=== PATIENT | male | born 1965 | race Caucasian/White ===

== ENCOUNTER → 2018-03-08 | Outpatient (REF) | payer BC, OTHER ==
[2018-03-08 19:42] LABS: CREATININE FOR GFR 1.29 MG/DL (0.70-1.30); GLOMERULAR FILTRATION RATE > 60.0 (>56)
[2018-03-08 19:42] LABS: BLOOD UREA NITROGEN 14 MG/DL (7-18)
== END ==
LOC: M LAB REF 18:24
DX: R22.30 Localized swelling, mass and lump, unspecified upper limb (principal)
CPT/HCPCS: 82565

== ENCOUNTER 2021-10-05 18:55 | Emergency (ER) | payer BC, OTHER ==
[~2021-10-05] VITALS: Ht 180.3 cm; Wt 110.8 kg
[2021-10-05] MEDS ORDERED: VALS1TAB68 (19:06)
[2021-10-05] MEDS ORDERED: METF10004 (19:06)
[2021-10-05] MEDS ORDERED: MIDAZOLAM INJ 2MG/2ML VIAL (J2250 PER 1MG) IV STA (19:06)
[2021-10-05] MEDS ORDERED: SILD100T (19:06)
[2021-10-05] MEDS ORDERED: JARD1TAB (19:06)
[2021-10-05] MEDS ORDERED: KCL 10MEQ/100ML SWI (KRUN) 10 MEQ in IV 1 EA IV ONE (19:15)
[2021-10-05 19:28] LABS: BASO # 0.1 10^3/uL (0.0-0.2); BASO % 0.8 % (0.0-1.0); EOS # 0.1 10^3/uL (0.0-0.5); EOS % 1.3 % (0.0-3.0); HEMATOCRIT 48.2 % (42.0-52.0); HEMOGLOBIN 15.8 g/dl (13.5-17.5); LYMPH # 5.5 10^3/uL (1.5-5.0); LYMPH % 58.1 % (24.0-44.0); MEAN CORPUSCULAR HEMOGLOBIN 30.7 pg (27.0-33.0); MEAN CORPUSCULAR HGB CONC 32.8 g/dl (32.0-36.5); MEAN CORPUSCULAR VOLUME 93.8 fl (80.0-96.0); MONO # 0.6 10^3/uL (0.0-0.8); MONO % 6.3 % (2.0-8.0); NEUTROPHILS # 3.1 10^3/uL (1.5-8.5); NEUTROPHILS % 32.5 % (36.0-66.0); PLATELET COUNT, AUTOMATED 216 10^3/uL (150-450); RED BLOOD COUNT 5.14 10^6/uL (4.30-6.10); WHITE BLOOD COUNT 9.5 10^3/uL (4.0-10.0)
[2021-10-05] MEDS ORDERED: NS 1,000 ML IV ONE (19:30)
--- NOTE | 2021-10-05 19:51 | REP ---
INDICATION: CHEST PAIN. COMPARISON: 05/07/2014. TECHNIQUE: Single portable AP view of the chest was performed. FINDINGS: There is no acute infiltrate or pulmonary edema. Lungs are clear. The heart is mildly enlarged. The mediastinal silhouette is magnified. The visualized osseous structures are intact. IMPRESSION: No acute pulmonary disease.Mild cardiomegaly. <Electronically signed by Andre Cash > 10/05/211946
[2021-10-05] MEDS ORDERED: ASPIRIN 81 MG CHEW TABLET PO ONE (19:55)
[2021-10-05] MEDS ORDERED: HEPARIN DRIP 25,000 UNITS in IV 1 EA IV SCH (19:55)
[2021-10-05] MEDS ORDERED: TICAGRELOR 90 MG TABLET (BRILINTA) PO ONE (19:55)
[2021-10-05] MEDS ORDERED: HEPARIN SOD (PORCINE) 5000UNITS/ML 1ML VIAL/SYRINGE IV ONE (19:55)
[2021-10-05 20:05] LABS: ALBUMIN 3.8 GM/DL (3.2-5.2); BILIRUBIN,DIRECT 0.2 MG/DL (0.0-0.2); BILIRUBIN,TOTAL 0.5 MG/DL (0.2-1.0); CREATININE FOR GFR 1.72 MG/DL (0.70-1.30); FREE T4 0.97 NG/DL (0.76-1.46); GLOMERULAR FILTRATION RATE 43.9 (>56); MAGNESIUM LEVEL 2.2 MG/DL (1.8-2.4); POTASSIUM SERUM 3.2 MEQ/L (3.5-5.1); THYROID STIMULATING HORMONE 2.01 uIU/ML (0.358-3.740); TOTAL PROTEIN 7.2 GM/DL (6.4-8.2)
[2021-10-05 20:19] LABS: CK-MB VALUE MASS 2.1 NG/ML (<3.6); MB/CK RELATIVE INDEX 1.1 (< OR =4)
[2021-10-05 20:22] LABS: RSV AMPLIFICATION NEGATIVE (NEGATIVE)
[2021-10-05 20:29] VITALS: BP 132/80
[2021-10-05 21:03] LABS: CK-MB VALUE MASS 11.2 NG/ML (<3.6); MB/CK RELATIVE INDEX 4.38 (< OR =4)
--- NOTE | 2021-10-06 06:42 | ECGEPIP ---
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
--- NOTE | 2021-10-06 12:45 | ECGEPIP ---
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
--- NOTE | 2021-10-07 08:25 | ECGEPIP ---
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
== END 2021-10-05 20:29 | disposition short-term general hospital (02) ==
LOC: EDBD 18:55 → M ED 18:55
DX: I21.3 ST elevation (STEMI) myocardial infarction of unspecified site (principal); R94.31 Abnormal electrocardiogram [ECG] [EKG]; I10 Essential (primary) hypertension; E11.9 Type 2 diabetes mellitus without complications; E78.5 Hyperlipidemia, unspecified; Z79.84 Long term (current) use of oral hypoglycemic drugs
CPT/HCPCS: 71045; 80047; 80048; 80076; 82550; 82553; 83690; 83735; 83880; 84439; 84443; 84484; 85025; 87631; 93005; 93041; 94760; 96365; 96367; 96375; 99285; J1644; J2250; J3480

== ENCOUNTER → 2022-08-21 | Outpatient (REF) | payer BC, OTHER ==
[~2022-08-21] MED LIST: JARD1TAB; METF10004; SILD100T; VALS1TAB68
[2022-08-21 18:08] LABS: BASO % 0.7 % (0.0-1.0); EOS # 0.1 10^3/uL (0.0-0.5); EOS % 2.2 % (0.0-3.0); HEMATOCRIT 47.8 % (42.0-52.0); HEMOGLOBIN 15.6 g/dl (13.5-17.5); LYMPH % 33.8 % (24.0-44.0); MEAN CORPUSCULAR HEMOGLOBIN 31.1 pg (27.0-33.0); MEAN CORPUSCULAR HGB CONC 32.6 g/dl (32.0-36.5); MEAN CORPUSCULAR VOLUME 95.4 fl (80.0-96.0); MONO # 0.5 10^3/uL (0.0-0.8); MONO % 7.9 % (2.0-8.0); NEUTROPHILS # 3.1 10^3/uL (1.5-8.5); NEUTROPHILS % 53.7 % (36.0-66.0); PLATELET COUNT, AUTOMATED 169 10^3/uL (150-450); RED BLOOD COUNT 5.01 10^6/uL (4.30-6.10); WHITE BLOOD COUNT 5.9 10^3/uL (4.0-10.0)
[2022-08-21 19:56] LABS: ALBUMIN 4.1 GM/DL (3.2-5.2); ALT/SGPT 46 U/L (12-78); BILIRUBIN,TOTAL 0.8 MG/DL (0.2-1.0); BLOOD UREA NITROGEN 19 MG/DL (7-18); CALCIUM LEVEL 9.8 MG/DL (8.5-10.1); CARBON DIOXIDE LEVEL 26 MEQ/L (21-32); CHLORIDE LEVEL 105 MEQ/L (98-107); CHOLESTEROL LEVEL 154 MG/DL (<200); CHOLESTEROL RISK RATIO 2.655 (<5); CREATININE FOR GFR 1.13 MG/DL (0.70-1.30); GLOMERULAR FILTRATION RATE > 60.0 (>56); GLUCOSE, FASTING 152 MG/DL (70-100); HDL CHOLESTEROL 58 MG/DL (>40); LDL CHOLESTEROL 51 MG/DL (<100); NON-HDL-C 96 MG/DL; POTASSIUM SERUM 4.5 MEQ/L (3.5-5.1); SODIUM LEVEL 140 MEQ/L (136-145); TOTAL PROTEIN 7.3 GM/DL (6.4-8.2); TRIGLYCERIDES LEVEL 227 MG/DL (<150)
[2022-08-21 20:40] LABS: TOTAL 25(OH) VITAMIN D 34.8 NG/ML (30.0-100.0)
[2022-08-21 20:46] LABS: CREATININE, URINE 54.5 MG/DL; MALB URINE SIEMENS 69.5 MG/L; MAU/CREAT RATIO 127.5 MCG/MG (0.0-30.0)
== END ==
LOC: M LAB REF 16:39
PROVIDERS: ATTEND Nurse Practitioner Family
DX: R53.83 Other fatigue (principal); I10 Essential (primary) hypertension; E11.9 Type 2 diabetes mellitus without complications

== ENCOUNTER 2022-09-18 20:13 | Emergency (ER) | payer BC, OTHER ==
[~2022-09-18] VITALS: Ht 180.3 cm; Wt 103.9 kg
[2022-09-18] MEDS ORDERED: ATOR40TA75 PO (20:38)
[2022-09-18] MEDS ORDERED: OMEP-173 PO (20:38)
[2022-09-18] MEDS ORDERED: BRIL90TA PO (20:38)
[2022-09-18] MEDS ORDERED: METO1TAB32 PO (20:38)
[2022-09-18] MEDS ORDERED: LABETALOL 100MG/20ML VIAL IV STA (22:11)
[2022-09-18] MEDS ORDERED: FUROSEMIDE 40MG/4ML VIAL (J1940) IV ONE (22:15)
[2022-09-18] MEDS ORDERED: ASPIRIN 81MG CHEW TABLET PO ONE (22:15)
[2022-09-18 22:34] VITALS: BP 169/114
[2022-09-18 22:39] LABS: BASO % 0.8 % (0.0-1.0); EOS # 0.1 10^3/uL (0.0-0.5); EOS % 2.3 % (0.0-3.0); HEMATOCRIT 46.2 % (42.0-52.0); LYMPH # 1.7 10^3/uL (1.5-5.0); LYMPH % 33.5 % (24.0-44.0); MEAN CORPUSCULAR HEMOGLOBIN 31.6 pg (27.0-33.0); MEAN CORPUSCULAR HGB CONC 34.6 g/dl (32.0-36.5); MEAN CORPUSCULAR VOLUME 91.1 fl (80.0-96.0); MONO # 0.4 10^3/uL (0.0-0.8); MONO % 7.9 % (2.0-8.0); NEUTROPHILS # 2.8 10^3/uL (1.5-8.5); NEUTROPHILS % 54.5 % (36.0-66.0); PLATELET COUNT, AUTOMATED 169 10^3/uL (150-450); RED BLOOD COUNT 5.07 10^6/uL (4.30-6.10); WHITE BLOOD COUNT 5.2 10^3/uL (4.0-10.0)
[2022-09-18 23:34] LABS: CK-MB VALUE MASS < 1.0 NG/ML (<3.6)
[2022-09-18 23:36] LABS: BILIRUBIN,DIRECT 0.3 MG/DL (<0.4)
[2022-09-18 23:44] LABS: ALBUMIN 4.2 G/DL (3.2-5.2); ALKALINE PHOSPHATASE 64 U/L (46-116); ALT/SGPT 63 U/L (7.0-40); AST/SGOT 32 U/L (<34); BILIRUBIN,TOTAL 0.9 MG/DL (0.3-1.2); BLOOD UREA NITROGEN 15 MG/DL (9-23); CALCIUM LEVEL 9.7 MG/DL (8.5-10.1); CARBON DIOXIDE LEVEL 26 MMOL/L (20-31); CHLORIDE LEVEL 102 MMOL/L (98-107); CPK CREATINE PHOSPHOKINASE 121 U/L (46-171); CREATININE FOR GFR 0.96 MG/DL (0.70-1.30); GLOMERULAR FILTRATION RATE > 60.0 (>56); GLUCOSE, FASTING 113 MG/DL (60-100); MB/CK RELATIVE INDEX 0.82 (< OR =4); SODIUM LEVEL 139 MMOL/L (136-145); TOTAL PROTEIN 7.2 G/DL (5.7-8.2)
[2022-09-18 23:45] VITALS: BP 132/88
[2022-09-18] MEDS ORDERED: LASI20TA3 PO (23:50)
== END 2022-09-19 00:05 | disposition home or self-care (01) ==
LOC: M ED 20:13
DX: I10 Essential (primary) hypertension (principal); I51.9 Heart disease, unspecified; Z79.899 Other long term (current) drug therapy; Z79.02 Long term (current) use of antithrombotics/antiplatelets; Z79.84 Long term (current) use of oral hypoglycemic drugs
CPT/HCPCS: 36415; 80048; 80076; 82550; 82553; 84484; 85025; 93005; 93041; 94760; 96374; 96375; 99285; J1940

== ENCOUNTER → 2022-10-27 | Outpatient (REF) | payer OTHER, BC ==
[~2022-10-27] MED LIST changes: +ATOR40TA75 PO; +BRIL90TA PO; +LASI20TA3 PO; +METO1TAB32 PO; +OMEP-173 PO
[2022-10-27 14:36] LABS: BLOOD UREA NITROGEN 25 MG/DL (9-23); CALCIUM LEVEL 10.3 MG/DL (8.5-10.1); CARBON DIOXIDE LEVEL 27 MMOL/L (20-31); CHLORIDE LEVEL 100 MMOL/L (98-107); CREATININE FOR GFR 1.17 MG/DL (0.70-1.30); GLOMERULAR FILTRATION RATE > 60.0 (>56); GLUCOSE, FASTING 177 MG/DL (60-100); POTASSIUM SERUM 4.4 MMOL/L (3.5-5.1); SODIUM LEVEL 137 MMOL/L (136-145)
== END ==
LOC: M LABDRWAD 13:13
DX: E11.9 Type 2 diabetes mellitus without complications (principal); I10 Essential (primary) hypertension

== ENCOUNTER → 2023-01-30 | Outpatient (CLI) | payer BC, OTHER ==
[2023-01-30 17:50] LABS: BLOOD UREA NITROGEN 19 MG/DL (9-23); CALCIUM LEVEL 10.5 MG/DL (8.5-10.1); CARBON DIOXIDE LEVEL 30 MMOL/L (20-31); CHLORIDE LEVEL 101 MMOL/L (98-107); CREATININE FOR GFR 1.13 MG/DL (0.70-1.30); GLOMERULAR FILTRATION RATE > 60.0 (>56); GLUCOSE, FASTING 144 MG/DL (60-100); SODIUM LEVEL 140 MMOL/L (136-145)
== END ==
LOC: M WUC 11:16
PROVIDERS: ATTEND Pediatrics
DX: I10 Essential (primary) hypertension (principal)

== ENCOUNTER → 2023-02-01 | Outpatient (CLI) | payer BC, OTHER | LOC: M PLARAD 08:16 | PROVIDERS: ATTEND Pediatrics | DX: H53.40 Unspecified visual field defects (principal); J34.89 Other specified disorders of nose and nasal sinuses; I67.89 Other cerebrovascular disease ==

== ENCOUNTER → 2023-06-26 | Outpatient (REF) | payer BC, OTHER ==
[2023-06-26 19:23] LABS: BASO # 0.1 10^3/uL (0.0-0.2); BASO % 0.8 % (0.0-1.0); EOS # 0.1 10^3/uL (0.0-0.5); EOS % 1.6 % (0.0-3.0); HEMATOCRIT 48.6 % (42.0-52.0); HEMOGLOBIN 16.1 g/dl (13.5-17.5); LYMPH # 1.8 10^3/uL (1.5-5.0); LYMPH % 29.5 % (24.0-44.0); MEAN CORPUSCULAR HEMOGLOBIN 31.5 pg (27.0-33.0); MEAN CORPUSCULAR HGB CONC 33.1 g/dl (32.0-36.5); MEAN CORPUSCULAR VOLUME 95.1 fl (80.0-96.0); MONO # 0.4 10^3/uL (0.0-0.8); MONO % 6.3 % (2.0-8.0); NEUTROPHILS # 3.8 10^3/uL (1.5-8.5); NEUTROPHILS % 60.4 % (36.0-66.0); PLATELET COUNT, AUTOMATED 181 10^3/uL (150-450); RED BLOOD COUNT 5.11 10^6/uL (4.30-6.10); WHITE BLOOD COUNT 6.2 10^3/uL (4.0-10.0)
[2023-06-26 19:48] LABS: ALBUMIN 4.3 G/DL (3.2-5.2); ALKALINE PHOSPHATASE 64 U/L (46-116); ALT/SGPT 40 U/L (7.0-40); AST/SGOT 25 U/L (<34); BILIRUBIN,TOTAL 0.9 MG/DL (0.3-1.2); BLOOD UREA NITROGEN 21 MG/DL (9-23); CALCIUM LEVEL 9.5 MG/DL (8.5-10.1); CARBON DIOXIDE LEVEL 29 MMOL/L (20-31); CHLORIDE LEVEL 103 MMOL/L (98-107); CHOLESTEROL LEVEL 138 MG/DL (<200); CHOLESTEROL RISK RATIO 2.32 (<5); CREATININE FOR GFR 1.07 MG/DL (0.70-1.30); GLOMERULAR FILTRATION RATE > 60.0 (>56); GLUCOSE, FASTING 138 MG/DL (60-100); HDL CHOLESTEROL 59.3 MG/DL (>40); LDL CHOLESTEROL 61.9 MG/DL (<100); NON-HDL-C 78.7 MG/DL; POTASSIUM SERUM 4.7 MMOL/L (3.5-5.1); SODIUM LEVEL 141 MMOL/L (136-145); THYROID STIMULATING HORMONE 0.726 uIU/ML (0.55-4.78); TOTAL PROTEIN 7.3 G/DL (5.7-8.2); TRIGLYCERIDES LEVEL 84 MG/DL (<150)
== END ==
LOC: M LAB REF 16:37
PROVIDERS: ATTEND Pediatrics
DX: E11.69 Type 2 diabetes mellitus with other specified complication (principal); I10 Essential (primary) hypertension; I25.10 Atherosclerotic heart disease of native coronary artery without angina pectoris; L80 Vitiligo; Z12.5 Encounter for screening for malignant neoplasm of prostate
CPT/HCPCS: 80053; 80061; 83036; 84443; 85025; G0103

== ENCOUNTER → 2023-09-14 | Outpatient (REF) | payer BC, OTHER ==
[2023-09-14 14:09] LABS: CREATININE, URINE 53.5 MG/DL
== END ==
LOC: M LAB REF 12:03
PROVIDERS: ATTEND Pediatrics
DX: E11.69 Type 2 diabetes mellitus with other specified complication (principal)

== ENCOUNTER → 2024-01-15 | Outpatient (CLI) | payer OTHER, BC ==
[2024-01-15 14:17] LABS: BLOOD UREA NITROGEN 19 MG/DL (9-23); GLOMERULAR FILTRATION RATE > 60.0 (>49)
[2024-01-15 14:18] LABS: THYROXINE (T4) 7.8 UG/DL (4.5-10.9); VITAMIN B12 LEVEL 367 PG/ML (211-911)
[2024-01-15 14:19] LABS: FOLATE > 24.0 NG/ML (>5.4); THYROID STIMULATING HORMONE 0.969 uIU/ML (0.55-4.78)
[2024-01-15 14:21] LABS: FREE THYROXINE INDEX 3.2 % (1.4-3.8); T UPTAKE 40.7 % (22.5-37.0)
== END ==
LOC: M LABDRWAD 10:37
PROVIDERS: ATTEND Psychiatry & Neurology Neurology
DX: E53.8 Deficiency of other specified B group vitamins (principal)

== ENCOUNTER → 2024-04-02 | Outpatient (REF) | payer OTHER, BC ==
[2024-04-02 13:45] LABS: ALBUMIN 4.2 G/DL (3.2-5.2); ALKALINE PHOSPHATASE 67 U/L (46-116); ALT/SGPT 38 U/L (7.0-40); AST/SGOT 26 U/L (<34); BILIRUBIN,TOTAL 0.8 MG/DL (0.3-1.2); BLOOD UREA NITROGEN 21 MG/DL (9-23); CALCIUM LEVEL 10.7 MG/DL (8.3-10.6); CARBON DIOXIDE LEVEL 30 MMOL/L (20-31); CHLORIDE LEVEL 106 MMOL/L (98-107); CREATININE FOR GFR 1.11 MG/DL (0.70-1.30); GLOMERULAR FILTRATION RATE > 60.0 (>49); GLUCOSE, FASTING 151 MG/DL (74-106); POTASSIUM SERUM 4.5 MMOL/L (3.5-5.1); SODIUM LEVEL 140 MMOL/L (136-145); TOTAL PROTEIN 7.3 G/DL (5.7-8.2)
[2024-04-02 13:50] LABS: CREATININE, URINE 79.8 MG/DL; MAU/CREAT RATIO 50.1 MCG/MG (0.0-30.0)
[2024-04-02 13:51] LABS: HEMOGLOBIN A1c 7.1 % (4.0-6.0)
== END ==
LOC: M LAB REF 12:01
PROVIDERS: ATTEND Pediatrics
DX: E11.69 Type 2 diabetes mellitus with other specified complication (principal)

== ENCOUNTER → 2024-07-16 | Outpatient (REF) | payer OTHER, BC ==
[2024-07-16 17:19] LABS: CREATININE, URINE 35.7 MG/DL
[2024-07-16 17:20] LABS: MAU/CREAT RATIO 16.8 MCG/MG (0.0-30.0)
[2024-07-16 17:43] LABS: HEMOGLOBIN A1c 7.6 % (4.0-6.0)
== END ==
LOC: M LAB REF 16:09
PROVIDERS: ATTEND Pediatrics
DX: E11.69 Type 2 diabetes mellitus with other specified complication (principal); Z12.5 Encounter for screening for malignant neoplasm of prostate

== ENCOUNTER → 2024-11-27 | Outpatient (REF) | payer OTHER ==
[2024-11-27 16:42] LABS: ALBUMIN 3.9 G/DL (3.2-5.2); ALKALINE PHOSPHATASE 65 U/L (40-129); ALT/SGPT 33 U/L (7.0-40); AST/SGOT 25 U/L (<34); BILIRUBIN,TOTAL 0.5 MG/DL (0.3-1.2); BLOOD UREA NITROGEN 23 MG/DL (9-23); CALCIUM LEVEL 9.9 MG/DL (8.3-10.6); CARBON DIOXIDE LEVEL 28 MMOL/L (20-31); CHLORIDE LEVEL 103 MMOL/L (98-107); CHOLESTEROL LEVEL 164 MG/DL (<200); CHOLESTEROL RISK RATIO 2.71 (<5); CREATININE FOR GFR 1.14 MG/DL (0.70-1.30); GLOMERULAR FILTRATION RATE > 60.0 (>49); GLUCOSE, FASTING 137 MG/DL (74-106); HDL CHOLESTEROL 60.4 MG/DL (>40); LDL CHOLESTEROL 65.8 MG/DL (<100); NON-HDL-C 103.6 MG/DL; POTASSIUM SERUM 4.5 MMOL/L (3.5-5.1); SODIUM LEVEL 141 MMOL/L (136-145); TOTAL PROTEIN 7.3 G/DL (5.7-8.2); TRIGLYCERIDES LEVEL 189 MG/DL (<150)
[2024-11-27 16:44] LABS: THYROID STIMULATING HORMONE 0.811 uIU/ML (0.55-4.78)
[2024-11-27 18:05] LABS: HEMOGLOBIN A1c 7.5 % (4.0-6.0)
== END ==
LOC: M LAB REF 13:07
PROVIDERS: ATTEND Pediatrics
DX: E11.69 Type 2 diabetes mellitus with other specified complication (principal)

== ENCOUNTER → 2025-08-28 | Outpatient (REF) | payer OTHER ==
[2025-08-28 14:01] LABS: CREATININE, URINE 83.8 MG/DL; MALB URINE SIEMENS 53.0 MG/L; MAU/CREAT RATIO 63.2 MCG/MG (0.0-30.0)
[2025-08-28 15:03] LABS: PSA SCREENING 1.15 NG/ML (< 4.00)
[2025-08-28 15:07] LABS: ALT/SGPT 33.0 U/L (7.0-40); AST/SGOT 27.0 U/L (<34); CALCIUM LEVEL 9.9 MG/DL (8.3-10.6); CARBON DIOXIDE LEVEL 29.0 MMOL/L (20-31); CHLORIDE LEVEL 103.0 MMOL/L (98-107); CHOLESTEROL LEVEL 120.0 MG/DL (<200); CHOLESTEROL RISK RATIO 2.36 (<5); CREATININE FOR GFR 1.26 MG/DL (0.70-1.30); GLOMERULAR FILTRATION RATE 64.9 (>49); LDL CHOLESTEROL 46.6 MG/DL (<100); NON-HDL-C 69.2 MG/DL; POTASSIUM SERUM 4.9 MMOL/L (3.5-5.1); SODIUM LEVEL 142.0 MMOL/L (136-145); TRIGLYCERIDES LEVEL 113.0 MG/DL (<150)
[2025-08-28 15:52] LABS: ESTIMATED AVERAGE GLUCOSE 169.0 MG/DL (60-110)
== END ==
LOC: M LAB REF 12:22
PROVIDERS: ATTEND Pediatrics
DX: E11.69 Type 2 diabetes mellitus with other specified complication (principal); E78.2 Mixed hyperlipidemia; Z12.5 Encounter for screening for malignant neoplasm of prostate
CPT/HCPCS: 80053; 80061; 82043; 83036; 84443; G0103